=== PATIENT | female | born 1955 | race Caucasian/White ===

== ENCOUNTER 2024-08-02 06:12 | Observation (INO) ==
[~2024-08-02 06:12] MED LIST: Metoclopramide 5 MG/ML VIAL (10 mg) IV PRN; NS 0.45% 1000 ml BAG 1,000 ML IV SCH; Naloxone 0.4 mg VIAL 0.4 mg/ml 1 ml VIAL IV PRN
[2024-08-02] MEDS ORDERED: Dexamethasone IV 4 MG/ML VIAL 1 ml VIAL ONE (06:35)
[2024-08-02] MEDS ORDERED: Rocuronium 50 mg VIAL 10 mg/ml 5 ml VIAL (50 mg) ONE ×2 (06:35→08:55)
[2024-08-02] MEDS ORDERED: Lidocaine 2% PF 5 ML VIAL ONE (06:35)
[2024-08-02] MEDS ORDERED: Ondansetron 4 mg VIAL 2 MG/ML 2 ml VIAL ONE ×2 (06:35→10:43)
[2024-08-02] MEDS ORDERED: Propofol 10 MG/ML 20 ML BTL ONE (06:35)
[2024-08-02] MEDS ORDERED: fentaNYL 100 mcg/2 ml 50 MCG/ML VIAL ONE ×5 (06:36→10:31)
[2024-08-02] MEDS ORDERED: Midazolam 2 mg/2 ml VIAL 1 mg/ml 2 ml VIAL (2 mg) ONE (06:36)
[2024-08-02] MEDS ORDERED: Scopolamine 1 mg/72hr PATCH ONE (06:57)
[2024-08-02] MEDS ORDERED: Chlorhexidine MOUTHWASH 0.12% 15 ML UDC ONE (06:58)
[2024-08-02] MEDS ORDERED: ceFAZolin 2 GM PREMIX 2 GM/50 ML BAG ONE (06:58)
[2024-08-02] MEDS: Lactated Ringers 1000 ml BAG 1,000 ML IV SCH ×2 (07:01→12:05)
[2024-08-02] MEDS: Scopolamine 1 mg/72hr PATCH TRANSDERM ONE (07:02)
[2024-08-02] MEDS: Buffered Lidocaine 1% SYRIN 1 ml INTRADERM ONE (07:02)
[2024-08-02] MEDS ORDERED: Albuterol/Ipratropium NEB.SOL (2.5/0.5 MG) 3 ML NEB.SOLN ONE ×2 (07:16→10:20)
[2024-08-02] MEDS: Albuterol/Ipratropium NEB.SOL (2.5/0.5 MG) 3 ML NEB.SOLN INH ONE ×2 (07:18→10:23)
[2024-08-02 07:27] LABS: Rapid COVID-19 Molecular Undetected (Undetected)
[2024-08-02] MEDS ORDERED: fentaNYL 250 mcg/5 ml 50 MCG/ML 5 ml VIAL (250 MCG) ONE (09:43)
[2024-08-02] MEDS ORDERED: Morphine 2 MG/ML SYRINGE IV PRN (10:03)
[2024-08-02] MEDS ORDERED: Phenol 1.4% Throat Spray BTL MT PRN (10:03)
[2024-08-02] MEDS ORDERED: Dextran 70/Hypromellose Tears Eye Drops 15 ml BTL (for Artificials Tears) BOTH EYES PRN (10:03)
[2024-08-02] MEDS ORDERED: Benzocaine/Menthol LOZ MT PRN (10:03)
[2024-08-02] MEDS ORDERED: Ondansetron 4 mg VIAL 2 MG/ML 2 ml VIAL IV PRN (10:03)
[2024-08-02] MEDS ORDERED: Calcium Carb (TUMS) 500 mg CHEW TAB PO PRN (10:03)
[2024-08-02] MEDS ORDERED: Senna TAB 8.6 mg TAB PO PRN (10:03)
[2024-08-02] MEDS: fentaNYL 100 mcg/2 ml 50 MCG/ML VIAL IV PRN (10:09)
[2024-08-02] MEDS: Ondansetron 4 mg VIAL 2 MG/ML 2 ml VIAL IV PRN (10:45)
[2024-08-02] MEDS: Acetaminophen IV 1 GM/100ML 1,000 MG/100 ML BAG IV ONE (12:57)
== END 2024-08-03 12:25 | disposition home or self-care (01) ==
LOC: OR 06:12 → SSU 06:12
PROVIDERS: ADMIT Neurological Surgery; ATTEND Neurological Surgery